=== PATIENT | female | born 1940 | race Caucasian/White ===

== ENCOUNTER 2018-02-24 11:47 | Outpatient (CLI) | payer MEDICARE, OTHER ==
--- NOTE | 2018-02-24 13:12 | XRAY Report ---
Reason: UNSPECIFIED OSTEOARTHRITIS Procedure Date: 02/24/2018 Accession Number: [id number] / [id number] Procedure: XR - Wrist 3 View BILAT CPT Code: FULL RESULT: EXAM: BILATERAL WRIST RADIOGRAPHY EXAM DATE: 02/24/2018 12:15 PM. CLINICAL HISTORY: UNSPECIFIED OSTEOARTHRITIS. COMPARISON: None. TECHNIQUE: 3 views. FINDINGS: Bones: No fractures or bone lesions. Joints: There is moderate degenerative change of the right distal radial ulnar joint and right first carpometacarpal joint. There is severe degenerative change of the left first carpometacarpal joint. Soft Tissues: No soft tissue swelling. IMPRESSION: Moderate osteoarthritis of the right wrist Severe osteoarthritis of the left basal joint RADIA
--- NOTE | 2018-02-24 13:17 | XRAY Report ---
Reason: UNSPECIFIED OSTEOARTHRITIS, UNSPECIFIED SITE Procedure Date: 02/24/2018 Accession Number: [id number] / [id number] Procedure: XR - Hand 3 View BILAT CPT Code: FULL RESULT: EXAMS: 1. Right Hand Radiography 2. Left Hand Radiography EXAM DATE: 02/24/2018 12:15 PM. CLINICAL HISTORY: UNSPECIFIED OSTEOARTHRITIS, UNSPECIFIED SITE. COMPARISON: None. TECHNIQUE: 3 views each hand. FINDINGS: Right: Bones: No fractures or bone lesions. Joints: There is moderate degenerative change of the first carpometacarpal joint. There is severe degenerative change of the first interphalangeal joint. There is moderate joint space narrowing of the second through fifth DIP joints with gull wing deformity. Soft Tissues: No soft tissue swelling. Left: Bones: No fractures or bone lesions. Joints: There is severe degenerative change of the first carpometacarpal joint. There is severe joint space narrowing of the second and third DIP joints with gull wing deformity. There is moderate degenerative change of the first interphalangeal joint and fourth DIP joint. Soft Tissues: No soft tissue swelling. IMPRESSION: Moderate to severe basal joint and first interphalangeal joint osteoarthritis. Combination of degenerative and erosive changes of several DIP joints suggests erosive osteoarthritis. RADIA
== END 2018-02-24 11:48 | disposition home or self-care (01) ==
LOC: DI 11:47
PROVIDERS: ATTEND Registered Nurse
DX: M19.031 Primary osteoarthritis, right wrist (principal); M18.0 Bilateral primary osteoarthritis of first carpometacarpal joints; M19.042 Primary osteoarthritis, left hand; M19.041 Primary osteoarthritis, right hand

== ENCOUNTER 2018-11-04 09:42 | Outpatient (CLI) | payer MEDICARE, OTHER ==
--- NOTE | 2018-11-18 08:59 | Mammography Report ---
Reason: ENCOUNTER FOR SCREENING MAMMOGRAM FOR MALIGNANT NE Procedure Date: 11/04/2018 Accession Number: [id number] / [id number] Procedure: RAGHAV - Screening Mammo w/[facility] CPT Code: FULL RESULT: EXAM: Screening Mammo w/[facility] DATE: 11/04/2018 10:35 AM CLINICAL HISTORY: Screening encounter. History of right breast excisional biopsy and 1976 with benign pathology. TECHNIQUE: (B) - Bilateral CC and MLO views were obtained. A right laterally exaggerated CC views obtained. COMPARISON: None are available. PARENCHYMAL PATTERN: (D) - The breast(s) demonstrate(s) heterogeneously dense fibroglandular parenchyma. FINDINGS: Laterally in the right breast are two isodense well-circumscribed nodules measuring approximately 5 mm each. The first is approximately 3.4 cm from the nipple and seen on the right CC image 20, possibly also on the right MLO image #13. The second nodule is best seen on the laterally exaggerated right cc view 10 cm from the nipple and potentially corresponds to a tomographic finding on the right CC image 48, in which case it would be a skin finding. These require additional spot views as well as ultrasound imaging for clarification unless prior mammograms can be made available for comparison and demonstrates long-term stability of greater than 2 years. There are typically benign vascular calcifications. Postsurgical changes are noted in the right breast. There are no suspicious masses, calcifications, or areas of distortion in the left breast. IMPRESSION: Incomplete examination. BI-RADS category 0. RECOMMENDATION: (ADDMU) - Additional views using both Mammography and Ultrasound recommended. Additional imaging of the right breast by ultrasound and spot mammography unless prior comparison imaging is made available and demonstrates greater than 2 year stability of the above findings. BI-RADS CATEGORY: (0) - Incomplete Examination - need additional evaluation. STANDARD QUALIFYING STATEMENTS: 1. This examination was not reviewed with the aid of Computer-Aided Detection (CAD). 2. A negative or benign imaging report should not preclude biopsy if clinically suspicious findings are present. 3. Dense breasts may obscure an underlying neoplasm. 4. This examination was reviewed with the aid of 3D breast imaging (tomosynthesis).
== END 2018-11-04 09:43 | disposition home or self-care (01) ==
LOC: DI 09:42
PROVIDERS: ATTEND Registered Nurse
DX: Z12.31 Encounter for screening mammogram for malignant neoplasm of breast (principal); R92.8 Other abnormal and inconclusive findings on diagnostic imaging of breast
CPT/HCPCS: 77063; 77067

== ENCOUNTER 2018-12-03 09:55 | Outpatient (CLI) | payer MEDICARE, OTHER ==
--- NOTE | 2018-12-03 12:29 | Mammography Report ---
Reason: ABNORMAL MAMMOGRAM Procedure Date: 12/03/2018 Accession Number: [id number] / [id number] Procedure: RAGHAV - Diag Special Views Dig RT CPT Code: FULL RESULT: EXAM: Diag Special Views Dig RT DATE: 12/03/2018 10:28 AM CLINICAL HISTORY: Diagnostic examination. The patient is recalled from screening for 2 small indeterminate right breast findings. TECHNIQUE: (R) - Right right spot CC, spot MLO and right ML images are obtained. Right focused breast ultrasound is performed. COMPARISON: 11/04/2018 through 06/30/2014. PARENCHYMAL PATTERN: (D) - The breast(s) demonstrate(s) heterogeneously dense fibroglandular parenchyma. FINDINGS: The previously noted nodule 10 cm from the nipple is identified as a skin finding, typically benign. The asymmetry previously described is 3.4 cm from the nipple in the lateral right breast demonstrates an appearance most compatible with breast parenchyma on spot imaging. Focused ultrasound examination of the right breast area of interest demonstrates a parenchymal breast pattern compatible with the mammographic appearance and no suspicious nodule or collection. There are no suspicious masses, calcifications, or areas of distortion. IMPRESSION: Benign findings. BI-RADS category 2. RECOMMENDATION: (ANNUAL) - Recommend routine annual screening mammography. BI-RADS CATEGORY: (2) - Benign Findings. STANDARD QUALIFYING STATEMENTS: 1. This examination was not reviewed with the aid of Computer-Aided Detection (CAD). 2. A negative or benign imaging report should not preclude biopsy if clinically suspicious findings are present. 3. Dense breasts may obscure an underlying neoplasm. 4. This examination was reviewed with the aid of 3D breast imaging (tomosynthesis).
== END 2018-12-03 09:56 | disposition home or self-care (01) ==
LOC: DI 09:55
PROVIDERS: ATTEND Registered Nurse
DX: R92.8 Other abnormal and inconclusive findings on diagnostic imaging of breast (principal)
CPT/HCPCS: 76642; 77065; G0279

== ENCOUNTER 2019-07-12 12:46 | Outpatient (CLI) | payer MEDICARE ==
--- NOTE | 2019-07-13 10:02 | XRAY Report ---
Reason: LT HIP OSTEOARTHRITIS W, CONSERN FOR HIEGHT DISCREPANCY AFTER RT Procedure Date: 07/12/2019 Accession Number: [id number] / [id number] Procedure: XR - Hip w/Pelvis 1V LT CPT Code: Final Report FULL RESULT: EXAM: PELVIS RADIOGRAPHY EXAM DATE: 07/12/2019 01:21 PM. CLINICAL HISTORY: LT HIP OSTEOARTHRITIS W, CONSERN FOR HIEGHT DISCREPANCY AFTER RT. COMPARISON: None. TECHNIQUE: 1 view. FINDINGS: Bones: Normal. No fracture or bone lesion. Joints: Right hip arthroplasty shows expected appearance in alignment, without evidence of lucency or break. Mild to moderate left hip joint space narrowing with subchondral sclerosis and osteophytes. The right acetabular cup appears to be approximately 1.5 cm superior to the left acetabular roof. Soft Tissues: Normal. No soft tissue swelling. IMPRESSION: 1. No fracture or dislocation. 2. Mild to moderate left hip degenerative arthritis. RADIA
== END 2019-07-12 12:47 | disposition home or self-care (01) ==
LOC: DI 12:46
PROVIDERS: ATTEND Registered Nurse
DX: M16.12 Unilateral primary osteoarthritis, left hip (principal)

== ENCOUNTER 2019-08-22 14:02 | Outpatient (CLI) | payer MEDICARE ==
--- NOTE | 2019-08-23 05:56 | XRAY Report ---
Reason: LOW BACK PAIN Procedure Date: 08/22/2019 Accession Number: [id number] / [id number] Procedure: XR - Lumbar Spine 2 View CPT Code: Final Report FULL RESULT: EXAM: LUMBOSACRAL SPINE RADIOGRAPHY EXAM DATE: 08/22/2019 02:21 PM. CLINICAL HISTORY: LOW BACK PAIN. COMPARISONS: None. TECHNIQUE: 3 views. FINDINGS: Alignment: There is slightly exaggerated lumbar lordosis. Minimal retrolisthesis is visualized at L1 on L2. Bones: Five [id number] lumbar vertebral bodies are present. No fractures or bone lesions. Disks: Moderate disk height loss is visualized at L1-L2 and L3-L4. Mild disk height loss is noted at L2-L3. Mild endplate sclerosis and osteophytosis is noted at L1-L2 and L3-L4. Facets: Facet hypertrophy and mild sclerosis noted in the lower lumbar spine. Sacroiliac Joints: Unremarkable. Soft Tissues: Aortic calcification is noted. IMPRESSION: 1. No evidence of acute pathology in the lumbar spine. 2. Moderate degenerative disk disease at L1-L2 and L3-L4 with milder degenerative changes noted elsewhere throughout the lumbar spine. 3. Lower lumbar facet arthropathy. RADIA
== END 2019-08-22 14:03 | disposition home or self-care (01) ==
LOC: DI 14:02
PROVIDERS: ATTEND Registered Nurse
DX: M51.36 Other intervertebral disc degeneration, lumbar region (principal); M47.816 Spondylosis without myelopathy or radiculopathy, lumbar region
CPT/HCPCS: 72100

== ENCOUNTER 2020-08-14 10:13 | Outpatient (CLI) | payer MEDICARE ==
--- NOTE | 2020-08-14 16:39 | XRAY Report ---
PROCEDURE: Cervical Spine 2 View INDICATIONS: HEADACHE TECHNIQUE: 3 view(s) of the cervical spine were acquired. COMPARISON: None. FINDINGS: Bones: No fractures or dislocations to the T4 level. The lateral masses of C1 appear intact on the odontoid view. No suspicious bony lesions. There is severe cervical spondylosis involving the image d cervical spine extending from C2-3 through C7-T1. Findings are most pronounced from C3-4 through C5 -6 where there are degenerative endplate changes, disc space loss, and prominent endplate osteophyte formation. Associated facet arthropathy, more pronounced on the left is also noted. Facet arthrosis i s most pronounced in the lower cervical spine. Minimal grade 1 anterolisthesis of C7-T1 likely relate d to positioning and/or moderate facet arthropathy at this level. Soft tissues: No prevertebral soft tissue swelling. Visualized lung apices are clear. Suspected lef t perihilar calcifications, inferior to the aortic arch. IMPRESSION: 1. Cervical spine without acute fracture or dislocation. 2. Severe multilevel cervical spondylosis as detailed above. 3. Suspected left superior perihilar calcifications. Consider dedicated chest radiograph for further characterization. Reviewed by: Gordon Miles MD on 08/14/2020 4:38 PM PST Approved by: Gordon Miles MD on 08/14/2020 4:38 PM PST Station ID: [id number]
== END 2020-08-14 10:14 | disposition home or self-care (01) ==
LOC: DI 10:13
PROVIDERS: ATTEND Registered Nurse
DX: M47.812 Spondylosis without myelopathy or radiculopathy, cervical region (principal)

== ENCOUNTER 2020-08-28 12:22 | Outpatient (CLI) | payer MEDICARE ==
--- NOTE | 2020-08-28 16:45 | XRAY Report ---
PROCEDURE: Chest 2 View X-Ray INDICATIONS: OTHER NON SPEC ABN FINDING OF LUNG FIELD TECHNIQUE: 2 view(s) of the chest. COMPARISON: Cervical spine dated 08/14/2020. FINDINGS: Surgical changes and devices: None. Lungs and pleura: No pleural effusions or pneumothorax. Lungs are clear. The previously described possible left perihilar calcifications are not reproduced and likely represented superimposition armin fact of bronchovascular structures. Mediastinum: Mediastinal contours are normal. Heart size is normal. Bones and chest wall: No suspicious bony abnormalities. Soft tissues appear unremarkable. IMPRESSION: Chest without acute cardiopulmonary abnormalities. Previous described possible left perihilar calcifications are not reproduced and likely represent art ifact. Reviewed by: Gordon Miles MD on 08/28/2020 4:43 PM PDT Approved by: Gordon Miles MD on 08/28/2020 4:43 PM PDT Station ID: [id number]
== END 2020-08-28 12:23 | disposition home or self-care (01) ==
LOC: DI 12:22
PROVIDERS: ATTEND Registered Nurse
DX: R91.8 Other nonspecific abnormal finding of lung field (principal)

== ENCOUNTER 2021-04-17 10:45 | Emergency (ER) | payer MEDICARE ==
[2021-04-17 11:27] LABS: BASOPHILS % (AUTO) 0.6 %; EOSINOPHILS # (AUTO) 0.1 10^3/uL (0.0-0.7); EOSINOPHILS % (AUTO) 1.1 %; HCT - HEMATOCRIT 44.6 % (37.0-47.0); HGB - HEMOGLOBIN 14.4 g/dL (12.0-16.0); LYMPHOCYTES # (AUTO) 1.3 10^3/uL (1.5-3.5); LYMPHOCYTES % (AUTO) 19.1 %; MEAN CORPUSCULAR HEMOGLOBIN 31.2 pg (27.0-31.0); MEAN CORPUSCULAR HGB CONC 32.3 g/dL (32.0-36.0); MEAN CORPUSCULAR VOLUME 96.7 fL (81.0-99.0); MEAN PLATELET VOLUME 10.5 fL (7.9-10.8); MONOCYTES # (AUTO) 0.7 10^3/uL (0.0-1.0); MONOCYTES % (AUTO) 10.2 %; NEUTROPHILS # (AUTO) 4.6 10^3/uL (1.5-6.6); NEUTROPHILS % (AUTO) 68.5 %; PLT - PLATELET COUNT 277 10^3/uL (130-450); RED BLOOD COUNT 4.61 10^6/uL (4.20-5.40); RED CELL DISTRIBUTION WIDTH 12.8 % (12.0-15.0); WHITE BLOOD COUNT 6.7 x10^3/uL (4.8-10.8)
[2021-04-17 11:41] LABS: ALBUMIN 4.5 g/dL (3.2-5.5); ALBUMIN/GLOBULIN RATIO 1.6 (1.0-2.2); BILIRUBIN,TOTAL 1.1 mg/dL (0.2-1.0); CALCIUM 9.7 mg/dL (8.5-10.3); CREATININE 0.5 mg/dL (0.4-1.0); POTASSIUM 3.9 mmol/L (3.5-5.0); TOTAL PROTEIN 7.4 g/dL (6.7-8.2)
--- NOTE | 2021-04-17 12:12 | XRAY Report ---
PROCEDURE: Chest 1 View X-Ray INDICATIONS: Chest pain TECHNIQUE: One view of the chest was acquired. COMPARISON: August 28, 2020 FINDINGS: SUPPORT DEVICES: Right shoulder surgical anchors. LUNGS/PLEURA: Biapical pleural thickening/scarring. Mild coarsened interstitial markings. No focal co nsolidation, pleural effusion or space-occupying pneumothorax. MEDIASTINUM: The cardiomediastinal silhouette is within normal limits. BONES/SOFT TISSUES: No acute abnormality. Prominent costochondral cartilage. IMPRESSION: 1.No acute cardiopulmonary abnormality. Reviewed by: Abner Amador MD on 04/17/2021 12:11 PM PDT Approved by: Abner Amador MD on 04/17/2021 12:11 PM PDT Station ID: [id number]
--- NOTE | 2021-04-17 12:45 | ED Physician Documentation ---
PD HPI CHEST PAIN - Stated complaint Stated Complaint: CHEST PX/ARM PX - Chief complaint Chief Complaint: Cardiac - History obtained from History obtained from: Patient - History of Present Illness Timing - onset: How many years ago (5) Timing - onset during: Rest Timing - duration: Minutes (3-5) Timing - details: Gradual onset Pain level max: 3 Pain level now: 0 Quality: Pressure, Tightness Location: Substernal Radiation: No: Jaw, Neck, Back, Abdominal, Left upper extremity, Right upper extremity, Other Improved by: Rest Worsened by: Exertion Associated symptoms: Shortness of air. No: Diaphoresis, Nausea, Vomiting, Feeling faint / dizzy, General Weakness, Palpitations, Cough - Additional information Additional information: Patient is an 80-year-old female who presents to the emergency department stating that she has had sharp intermittent chest pain for the past 5 years. N ormally lasts for a few seconds at a time. Today lasted 20 to 30 seconds. Came in for evaluation. Nonradiating. Nothing made it better or worse. No change with exertion or respiration. Currently asymptomatic. No cardiac history. Review of Systems Constitutional: denies: Fever Cardiac: reports: Chest pain / pressure. denies: Palpitations Respiratory: denies: Cough, Hemoptysis, Wheezing Skin: denies: Rash Musculoskeletal: denies: Neck pain, Back pain Neurologic: denies: Headache PD PAST MEDICAL HISTORY - Past Medical History Past Medical History: Yes Cardiovascular: Hypertension, High cholesterol - Allergies Allergies/Adverse Reactions: Allergies Allergy/AdvReac Type Severity Reaction Status Date / Time Sulfa (Sulfonamide Allergy Hives Verified 04/17/21 11:06 Antibiotics) - Social History Does the pt smoke?: No Smoking Status: Never smoker PD ED PE NORMAL - Vitals Vital signs reviewed: Yes - General General: Alert and oriented X 3, No acute distress, Well developed/nourished - HEENT HEENT: Moist mucous membranes - Neck Neck: Supple, no meningeal sign - Cardiac Cardiac: RRR, No murmur, Strong equal pulses - Respiratory Respiratory: No respiratory distress, Clear bilaterally - Abdomen Abdomen: Normal bowel sounds, Soft, Non tender, Non distended - Derm Derm: Warm and dry - Extremities Extremities: No edema, No calf tenderness / cord - Neuro Neuro: Alert and oriented X 3 - Psych Psych: Normal mood, Normal affect Results - Vitals Vitals: Vital Signs - 24 hr 04/17/21 04/17/21 04/17/21 11:02 11:35 12:05 Temperature 36.4 C L Heart Rate 57 L 54 L 58 L Respiratory 16 10 L 17 Rate Blood Pressure 140/60 H 110/64 134/68 H O2 Saturation 98 98 99 04/17/21 04/17/21 12:30 13:00 Temperature Heart Rate 51 L 53 L Respiratory 12 19 Rate Blood Pressure 129/65 134/68 H O2 Saturation 98 99 Oxygen O2 Source Room air - EKG (time done) 1100 Rate: Rate (enter#) (57) Rhythm: NSR Jena: Normal, LAD Intervals: Normal [place] QRS: Normal Ischemia: Normal ST segments - Labs Labs: Laboratory Tests 04/17/21 04/17/21 04/17/21 11:16 11:16 11:16 WBC 6.7 RBC 4.61 Hgb 14.4 Hct 44.6 MCV 96.7 MCH 31.2 H MCHC 32.3 RDW 12.8 Plt Count 277 MPV 10.5 Neut # (Auto) 4.6 Lymph # (Auto) 1.3 L [place] # (Auto) 0.7 Eos # (Auto) 0.1 Baso # (Auto) 0.0 Absolute Nucleated RBC 0.00 Nucleated RBC % 0.0 Sodium 136 Potassium 3.9 Chloride 101 Carbon Dioxide 28 Anion Gap 7.0 BUN 11 Creatinine 0.5 Estimated GFR (MDRD) 119 Glucose 94 Calcium 9.7 Total Bilirubin 1.1 H AST 35 ALT 39 Alkaline Phosphatase 107 Troponin I High Sens 3.6 Total Protein 7.4 Albumin 4.5 Globulin 2.9 Albumin/Globulin Ratio 1.6 Lipase 37 - Rads (name of study) cxr Radiology: Final report received, EMP read contemporaneously, See rad report (1.No acute cardiopulmonary abnormality.) PD MEDICAL DECISION MAKING - ED course Complexity details: reviewed results, re-evaluated patient, considered differential (No ST elevation IN, no aortic dissection, no PE, no tension pneumothorax, no aortic aneurysm), d/w patient ED course: 80-year-old female presents to the emergency department with sharp chest pain, lasting for a few seconds. Not consistent with acute coronary syndrome. No acute findings on chest x-ray or EKG. Negative troponin. No evidence of PE. Unclear etiology of her symptoms. We will have her follow-up with her doctor for further care. Patient counseled regarding signs and symptoms for which I believe and urgent re-evaluation would be necessary. Patient with good understanding of and agreement to plan and is comfortable going home at this time This document was made in part using voice recognition software. While efforts are made to proofread this document, sound alike and grammatical errors may occur. Departure - Departure Disposition: 01 Home, Self Care Clinical Impression: Palpitations Chest pain Qualifiers: Chest pain type: unspecified Qualified Code(s): R07.9 - Chest pain, unspecified Condition: Good Instructions: ED Chest Pain Atypical Unkn Cause, ED Palpitations Follow-Up: Penny Fish ARNP [Primary Care Provider] - Within 1 week Comments: The cause of your symptoms is unclear. Please follow-up with your doctor for further care and a stress test. Return if you worsen Discharge Date/Time: 04/17/21 13:15
[2021-04-17 13:05] VITALS: BP 134/68
== END 2021-04-17 13:15 | disposition home or self-care (01) ==
LOC: ED 10:45
DX: R07.89 Other chest pain (principal); R00.2 Palpitations; I10 Essential (primary) hypertension
CPT/HCPCS: 36415; 80053; 83690; 84484; 85025; 93005; 99284

== ENCOUNTER 2022-10-07 12:03 | Outpatient (CLI) | payer MEDICARE ==
[2022-10-07 12:33] LABS: CHOLESTEROL 247 mg/dL; HDL CHOLESTEROL 62 mg/dL; LDL CHOLESTEROL,CALCULATED 167 mg/dL; LDL/HDL RATIO 2.7 (<4.4); TRIGLYCERIDES 89 mg/dL; VLDL CHOLESTEROL 18 mg/dL
[2022-10-07 13:46] LABS: ALBUMIN 3.9 g/dL (3.2-5.5); ALBUMIN/GLOBULIN RATIO 1.3 (1.0-2.2); ALKALINE PHOSPHATASE 104 IU/L (42-121); ALT ALANINE AMINOTRANSFERASE 37 IU/L (10-60); AST ASPARTATE AMINOTRANSFERASE 39 IU/L (10-42); BILIRUBIN,TOTAL 0.6 mg/dL (0.2-1.0); BUN - BLOOD UREA NITROGEN 10 mg/dL (6-20); CARBON DIOXIDE - CO2 27 mmol/L (21-32); CHLORIDE 98 mmol/L (101-111); CREATININE 0.6 mg/dL (0.4-1.0); GFR - MDRD 96 (>89); GLUCOSE 87 mg/dL (70-100); POTASSIUM 4.7 mmol/L (3.5-5.0); SODIUM 134 mmol/L (135-145)
--- NOTE | 2022-10-07 16:52 | XRAY Report ---
PROCEDURE: Chest 2 View X-Ray INDICATIONS: COUGH TECHNIQUE: 2 views of the chest were acquired. COMPARISON: 01/29/2022 FINDINGS: Surgical changes and devices: Right humeral suture anchors. Lungs and pleura: No pleural effusions or pneumothorax. Lungs are clear. Mediastinum: Mediastinal contours appear normal. Heart size is normal. Bones and chest wall: No suspicious bony lesions. Overlying soft tissues appear unremarkable. IMPRESSION: No acute cardiopulmonary disease process. Reviewed by: Rosita Edwards MD, PhD on 10/07/2022 4:51 PM PDT Approved by: Rosita Edwards MD, PhD on 10/07/2022 4:51 PM PDT Station ID: [id number]
== END 2022-10-07 12:04 | disposition home or self-care (01) ==
LOC: DI 12:03
PROVIDERS: ATTEND Registered Nurse
DX: R05.2 Subacute cough (principal); E78.49 Other hyperlipidemia
CPT/HCPCS: 36415; 80053; 80061; 83721

== ENCOUNTER 2022-10-08 12:10 | Outpatient (CLI) | payer MEDICARE | END 2022-10-08 12:11 | disposition home or self-care (01) | LOC: LAB 12:10 | PROVIDERS: ATTEND Registered Nurse | DX: E78.5 Hyperlipidemia, unspecified (principal); M85.80 Other specified disorders of bone density and structure, unspecified site | CPT/HCPCS: 36415; 82306 ==

== ENCOUNTER 2022-11-17 13:00 | Outpatient (CLI) | payer MEDICARE ==
--- NOTE | 2022-11-17 18:15 | DEXA Report ---
PROCEDURE: Dexa Spine and/or Hip INDICATIONS: OSTEOPENIA TECHNIQUE: Dual energy x-ray absorptiometry (DXA) was performed on a [employer] System. Regions measur ed are the AP Spine, femoral neck, and if needed forearm. COMPARISON: None FINDINGS: Lumbar Spine: Bone Mineral Density 1.068 g/cm/cm,T score -0.9. Normal Left Femoral Neck: Bone Mineral Density 0.710 g/cm/cm, T score -2.4. Osteopenia Left Hip: Bone Mineral Density 0.772 g/cm/cm,T score -1.9. Osteopenia (T score greater or equal to -1.0: NORMAL) (T score from -1.1 to -2.4: OSTEOPENIA) (T score less than or equal to -2.5 to: OSTEOPOROSIS) Impression: By WHO criteria, this patient has low bone density (osteopenia). Patients with diagnosis of osteoporosis or osteopenia should have regular bone mineral density assess ment. For those eligible for Medicare, routine testing is allowed once every 2 years. Testing frequ ency can be increased for patients who have rapidly progressing disease or for those who are receivin g medical therapy to restore bone mass. Reviewed by: Nilton John MD on 11/17/2022 5:14 PM SCOT Approved by: Nilton John MD on 11/17/2022 5:14 PM SCOT Station ID: [id number]
== END 2022-11-17 13:01 | disposition home or self-care (01) ==
LOC: DI 13:00
PROVIDERS: ATTEND Registered Nurse
DX: M85.89 Other specified disorders of bone density and structure, multiple sites (principal)

== ENCOUNTER 2023-01-14 09:26 | Emergency (ER) | payer MEDICARE ==
[2023-01-14 09:46] VITALS: BP 118/60
--- NOTE | 2023-01-14 09:54 | ED Physician Documentation ---
PD HPI SKIN - Stated complaint Stated Complaint: BEE STING/SWELLING/ RT ARM - Chief complaint Chief Complaint: Allergic Rx - History obtained from History obtained from: Patient - History of Present Illness Timing - onset: How many hours ago (just under 24 hours ago), Yesterday Timing - duration: Days (1) Timing - details: Abrupt onset, Still present (stung in several spots - right forearm 2-3 times, and right lower leg 1-2 times. Had swelling and pain prompbtly but no bodywide symptoms. Has had continued increased redness and swelling in areas of the stings, with this morning having larger red/swelling. No dyspnea.) Location: RUE, RLE Quality / character: Painful, Discolored (redness), Swelling Improved by: No: Benadryl Associated symptoms: No: Fever, Myalgias, Facial swelling, Dyspnea, N/V/D Contributing factors: Insect bite /sting Recently seen: Not recently seen Review of Systems Constitutional: denies: Fever, Myalgias Musculoskeletal: denies: Neck pain, Back pain Neurologic: denies: Near syncope PD PAST MEDICAL HISTORY - Past Medical History Cardiovascular: Hypertension, High cholesterol - Present Medications Home Medications: Ambulatory Orders Medication Instructions Recorded Confirmed cephALEXin [Keflex] 500 mg PO TID #20 cap 01/14/23 dexAMETHasone [Decadron] 4 mg PO DAILY #5 tablet 01/14/23 - Allergies Allergies/Adverse Reactions: Allergies Allergy/AdvReac Type Severity Reaction Status Date / Time Sulfa (Sulfonamide Allergy Hives Verified 01/14/23 09:41 Antibiotics) - Social History Does the pt smoke?: No Smoking Status: Never smoker PD ED PE NORMAL - Vitals Vital signs reviewed: Yes - General General: Alert and oriented X 3, Well developed/nourished - HEENT HEENT: Pharynx benign - Neck Neck: Supple, no meningeal sign, No adenopathy - Cardiac Cardiac: RRR, No murmur - Respiratory Respiratory: No respiratory distress, Clear bilaterally - Derm Derm: Normal color, Warm and dry - Extremities Extremities: Other (right forearm with swelling, redness, tenderness around areas of stings. No FB. Redness extends to about elbow area. Right dorsal lower leg with also local swelling/tenderness. ) - Neuro Neuro: Alert and oriented X 3, No motor deficit, No sensory deficit Results - Vitals Vitals: Vital Signs - 24 hr 01/14/23 09:38 Temperature 36.5 C Heart Rate 65 Respiratory 15 Rate Blood Pressure 118/60 O2 Saturation 100 Oxygen O2 Source Room air PD Medical Decision Making - ED course Complexity details: considered differential (within the first 24 hours after the stings, with progressive red/swelling, it would seem ongoing venom effect and reaction. Would be fairly early to be thinking cellulitis as yet. Conveyed this to pt. can add steroids for the non histamine mediated component of the reaction. No systmeic symptoms.), d/w patient Departure - Departure Disposition: 01 Home, Self Care Clinical Impression: Local reaction to bee sting Condition: Stable Record reviewed to determine appropriate education?: Yes Instructions: ED Bite Insect Follow-Up: Penny Fish ARNP [Primary Care Provider] - Prescriptions: dexAMETHasone [Decadron] 4 mg PO DAILY #5 tablet cephALEXin [Keflex] 500 mg PO TID #20 cap Comments: The redness and swelling within the first 24 hours as it is, would be very unlikely to be infection as yet. It most commonly is going to be just a prolonged Venema fact which can last 1 or 2 days. I would expect the symptoms to plateau and start receding today in combination with continuing some antihistamines and starting on the steroids. Cool towels to the area as times as well. If you continue with increased redness or swelling extending further into tomorrow or so, then consideration could be for an infection (cellulitis) at which point to start the cephalexin antibiotic. I sent prescription to [facility] in [place]. Forms: PCP List Discharge Date/Time: 01/14/23 10:58
[2023-01-14] MEDS ORDERED: dexAMETHasone 4 MG TABLET PO STA (10:20)
[2023-01-14] MEDS ORDERED: CETIRIZINE 10 MG TABLET PO STA (10:20)
--- OUTSIDE RECORDS SUMMARY | 2023-01-14 10:26 | EXTERNAL MEDICAL SUMMARY RPT | Continuity of Care Document ---
Author Name Unknown Address [address] [place] [address] Phone Organization [place] Address [address] [phone] Phone Problems date description facility 2022-12-25 12:32 Other hammer toe(s) (acquired), unspecified [facility] 2022-12-25 12:32 Bunion of unspecified foot [facility] 2022-12-25 12:32 Metatarsalgia, [facility] Results/Labs test date facility value unit notes
== END 2023-01-14 10:58 | disposition home or self-care (01) ==
LOC: ED 09:26
DX: T63.441A Toxic effect of venom of bees, accidental (unintentional), initial encounter (principal); L53.0 Toxic erythema; R22.41 Localized swelling, mass and lump, right lower limb; R22.31 Localized swelling, mass and lump, right upper limb
CPT/HCPCS: 99282; 99283; A9270; J8540

== ENCOUNTER 2023-06-16 13:25 | Outpatient (CLI) | payer MEDICARE ==
--- NOTE | 2023-06-16 20:16 | XRAY Report ---
PROCEDURE: Chest 2V INDICATIONS: CHEST PAIN TECHNIQUE: 2 views of the chest were acquired. COMPARISON: 10/07/2022 FINDINGS: Surgical changes and devices: Surgical anchors again seen in the right humeral head. Lungs and pleura: No pleural effusions or pneumothorax. Lungs are clear. Mediastinum: Mediastinal contours appear normal. Heart size is normal. Bones and chest wall: Age-appropriate degenerative changes in the spine. IMPRESSION: No acute cardiopulmonary process. Reviewed by: Garett Barrios MD on 06/16/2023 8:15 PM PST Approved by: Garett Barrios MD on 06/16/2023 8:15 PM PST Station ID: [id number]
== END 2023-06-16 13:26 | disposition home or self-care (01) ==
LOC: DI 13:25
PROVIDERS: ATTEND Registered Nurse
DX: R07.9 Chest pain, unspecified (principal)

== ENCOUNTER 2023-11-13 12:26 | Outpatient (CLI) | payer MEDICARE ==
--- NOTE | 2023-11-13 12:52 | XRAY Report ---
PROCEDURE: Lumbar Spine 2-3V INDICATIONS: LOWER BACK STRAIN/RIGHT SI JOINT PAIN TECHNIQUE: 2 views of the lumbar spine were acquired. COMPARISON: 08/22/2019 FINDINGS: Surgical change: Right total hip arthroplasty. Bones: 5 [id number] vertebrae are present. Grade 1 anterolisthesis of L5 on S1 secondary to fac et arthrosis, progressed from prior. No vertebral body compression fractures. No suspicious bony les ions. Moderate disc height loss at L1-2, L2-3 and L3-4, mild disc height loss at remaining levels. Di ffuse facet arthrosis. Normal appearance of the SI joints. Soft tissues: Overlying bowel gas pattern is normal. No suspicious soft tissue calcifications. IMPRESSION: Mild to moderate, multilevel degenerative disc disease and diffuse facet arthrosis, progressed since 2020. SI joints appear unremarkable. Reviewed by: Marcos Carrera MD on 11/13/2023 12:51 PM PDT Approved by: Marcos Carrera MD on 11/13/2023 12:51 PM PDT Station ID: [id number]
== END 2023-11-13 23:59 | disposition home or self-care (01) ==
LOC: DI.S 12:26
PROVIDERS: ATTEND Registered Nurse
DX: M47.816 Spondylosis without myelopathy or radiculopathy, lumbar region (principal); M47.817 Spondylosis without myelopathy or radiculopathy, lumbosacral region; M51.36 Other intervertebral disc degeneration, lumbar region; M51.37 Other intervertebral disc degeneration, lumbosacral region

== ENCOUNTER 2024-02-16 08:53 | Outpatient (CLI) | payer MEDICARE ==
--- NOTE | 2024-02-16 21:01 | XRAY Report ---
PROCEDURE: Ankle 3+V RT INDICATIONS: R ANKLE PAIN TECHNIQUE: 3 views of the ankle were acquired. COMPARISON: None. FINDINGS: Bones: No fractures or dislocations. Ankle mortise is normally aligned. No suspicious bony lesions . Soft tissues: No tibiotalar joint effusion. Achilles tendon appears normal. IMPRESSION: No acute bony abnormality. If pain persists with conservative management, consider repeat x-ray in 10 -14 days or cross-sectional imaging. No significant osteoarthritic changes of the ankle. Reviewed by: Miguel Gutierrez MD on 02/16/2024 9:00 PM PDT Approved by: Miguel Gutierrez MD on 02/16/2024 9:00 PM PDT Station ID: [id number]
== END 2024-02-16 08:54 | disposition home or self-care (01) ==
LOC: DI 08:53
PROVIDERS: ATTEND Registered Nurse
DX: M25.571 Pain in right ankle and joints of right foot (principal)